=== PATIENT | male | born 1945 | race Caucasian/White ===

== ENCOUNTER 2018-01-13 08:23 | Observation (INO) ==
[2018-01-13] MEDS ORDERED: Isovue-370 500 ML INFUS..BTL IV ONE ×2 (08:33→10:45)
[2018-01-13] MEDS ORDERED: Ondansetron 4 MG/2 ML VIAL IVP ONE (08:35)
[2018-01-13] MEDS ORDERED: Ketorolac 15 MG/ML VIAL IVP ONE (08:35)
[2018-01-13] MEDS ORDERED: 0.9 % Sodium Chloride 500 ML IVC ONE (08:35)
--- NOTE | 2018-01-13 08:39 | Emergency Department Note ---
Disposition Clinical Impression: Acute appendicitis with rupture Disposition: Admitted As Inpatient Condition: Fair Abdominal Pain HPI - General Chief Complaint: ED Abdominal Pain Stated Complaint: abd pain Time Seen by Provider: 01/13/18 08:27 Source: patient Mode of arrival: ambulatory Limitations: no limitations Nursing Notes Reviewed: Yes Vital Signs Reviewed: Yes - History of Present Illness HPI Narrative: 72 year old male presents with abdominal pain. Pt stated he had cramping pain with nausea and diarrhea for three days in the past weekend. The pain moved to right lower quatrain and got worse since last night. Associate with mild nausea. no vomiting. Diarrhea resolved. Normal bowel movement this morning. He felt chills and hot. No past surgeries in abdomen. No history of diverticulosis. Pt Subjective Complaint: abdominal pain Onset (ago): day(s) Consistency: constant Location: RLQ Pain Scale: 7 - Related Data Home Medications Medication Instructions Recorded Confirmed Ascorbic Acid [Vitamin C] 1,000 mg PO DAILY 01/13/18 01/13/18 Aspirin [Adult Aspirin] 81 mg PO DAILY 01/13/18 01/13/18 Cholecalciferol (D-3) [Vitamin D] 2,000 unit PO DAILY 01/13/18 01/13/18 Finasteride [Proscar] 5 mg PO DAILY 01/13/18 01/13/18 Multivit-Min/FA/Lycopen/Lutein 1 tab PO DAILY 01/13/18 01/13/18 [Centrum Silver Men Tablet] Tamsulosin [Flomax] 0.4 mg PO DAILY 01/13/18 01/13/18 Allergies Allergy/AdvReac Type Severity Reaction Status Date / Time No Known Allergies Allergy Verified 01/13/18 08:27 Constitutional: Denies: fever Eyes: Denies: eye pain ENT ED: Denies: ear pain Cardiovascular: Denies: chest pain Respiratory: Denies: cough Gastrointestinal: Reports: abdominal pain, nausea Genitourinary: Denies: urgency Musculoskeletal: Denies: back pain Integumentary: Denies: rash Neurological: Denies: headache Psychiatric: Denies: anxiety Endocrine: Denies: fatigue Hematological/Lymphatic: Denies: easy bleeding Allergic/Immunologic: Denies: facial swelling Physical Exam - General Limitations: no limitations General appearance: alert - Head Head exam: atraumatic - Eye Eye exam: Present: normal appearance. Absent: scleral icterus, conjunctival injection - ENT ENT exam: normal exam - Neck Neck exam: Present: normal inspection - Chest Chest inspection: Present: normal inspection - Respiratory Respiratory exam: Present: normal lung sounds bilaterally. Absent: respiratory distress, wheezes - Cardiovascular Cardiovascular exam: Present: regular rate, normal rhythm - Abdominal Exam Abdominal exam: Present: soft, tenderness, rebound Abdominal tenderness: Present: RLQ - Extremities Exam Extremities exam: Present: normal inspection, full ROM. Absent: tenderness, pedal edema - Back Exam Back exam: Present: normal inspection, full ROM. Absent: tenderness - Neurological Exam Neurological exam: Present: alert, oriented X3 - Psychiatric Psychiatric exam: Present: normal affect, normal mood. Absent: depressed - Skin Skin exam: Present: warm, intact Course Vital Signs Temperature 98.6 F 01/13/18 08:25 Pulse Rate 100 01/13/18 08:25 Respiratory Rate 16 01/13/18 08:25 Blood Pressure 144/84 01/13/18 08:25 O2 Sat by Pulse Oximetry 96 01/13/18 08:25 Temperature 98.6 F 01/13/18 08:32 Pulse Rate 85 01/13/18 12:29 Respiratory Rate 19 01/13/18 12:29 Blood Pressure 146/85 01/13/18 12:29 O2 Sat by Pulse Oximetry 94 01/13/18 12:29 Oxygen Delivery Oxygen Delivery Room Air Abdominal Pain - [facility] Narrative Medical decision making narrative: 72 year old male presents with acute abdominal pain for 3 days, the pain located in RLQ since last night, associate with nausea. Physical exam: RLQ tender to rebound tenderness. Labs: white cell 12 slightly elevated, CRP elevated, abdomen CT indicated ruptured appenicities with 4.5 cm abscess. Surgeon contacted, pt will be admitted to surgical service. IV fluids and antibiotics started in ER. Dr. Hopkins saw the patient and agrees the above plan. Abdomen/Pelvis CT 01/13/18 08:33 IMPRESSION: Ruptured appendicitis. Associated 4.5 cm rim enhancing fluid collection suspicious for associated abscess. D/ / Matti Olivier MD / Matti Olivier MD Interpreting Provider: Matti Olivier MD Chest CT 01/13/18 10:45 IMPRESSION: 1. Again noted is a grossly dilated esophagus throughout its course in the chest consistent with achalasia. 2. Otherwise, stable chest CT. No acute abnormalities are identified. D/ / Desean Aguillon MD / Desean Aguillon MD Interpreting Provider: Desean Aguillon MD 1128 hrs.: Patient has ruptured appendicitis on CT. Were not start him on antibiotics. We spoke with Dr. Faith, she is in agreement with the admission. Patient's in agreement with admission. Patient's feeling better at this time. And a buttocks are started and waiting on bed placement. - Lab Data Lab results reviewed: Yes I reviewed the patient's lab results. Result diagrams: 01/13/18 09:12 01/13/18 09:12 Lab Results 01/13/18 01/13/18 01/13/18 Range/Units 09:11 09:12 09:12 WBC 12.7 H (4.3-11.1) K/mcL RBC 4.41 (4.19-5.50) M/mcL Hgb 14.5 (12.9-16.9) g/dL Hct 43.3 (37.5-50.1) % MCV 98.2 (83.0-100.0) fL MCH 32.9 (28.0-33.3) pg MCHC 33.5 (31.6-35.5) g/dL RDW 13.8 (11.5-14.5) % Plt Count 238 (140-400) K/mcL MPV 9.8 (9.4-12.4) fL Immature Gran % 1.1 (0-4) % Seg Neutrophils % 84.2 % Lymphocytes % 7.4 % Monocytes % 6.9 % Eosinophils % 0.2 % Basophils % 0.2 % Neutrophils # 10.7 H (1.6-8.9) K/mcL Lymphocytes # 0.9 (0.6-4.6) K/mcL Monocytes # 0.9 (0.0-1.3) K/mcL Eosinophils # 0.0 (0.0-0.6) K/mcL Basophils # 0.0 (0.0-0.2) K/mcL Sodium 136 (136-145) mEq/L Potassium 3.9 (3.5-5.1) mEq/L Chloride 101 (98-107) mEq/L Carbon Dioxide 27 (23-29) mEq/L BUN 21 (8-23) mg/dL Creatinine 0.97 (0.70-1.30) mg/dL Est GFR ( Amer) > 60 (> 60) Est GFR (Non-Af Amer) > 60 (> 60) BUN/Creatinine Ratio 22 (6-26) Glucose 114 H (70-105) mg/dL Calculated Osmolality 286 (280-300) Calcium 8.6 (8.6-10.3) mg/dL Total Bilirubin 0.9 (0.3-1.0) mg/dL AST 13 (13-39) Units/L ALT 14 (7-52) Units/L Alkaline Phosphatase 63 (34-104) Units/L C-Reactive Protein 123 H (Less than 10) mg/L Serum Total Protein 6.5 (6.4-8.9) g/dL Albumin 3.5 (3.5-5.7) g/dL Globulin 3.0 (2.4-3.5) g/dL Albumin/Globulin Ratio 1.2 (1.1-2.2) Lipase 6 L (11-82) Units/L Urine Color Yellow (Yellow) Urine Clarity Cloudy A (Clear) Urine pH 6.5 (5.0-8.0) pH Units Ur Specific [place] 1.021 (1.010-1.025) Urine Protein 30 H (Neg-Trace) mg/dL Urine Glucose (UA) Normal (Normal) mg/dL Urine Ketones 40 H (Negative) mg/dL Urine Blood Negative (Negative) Urine Nitrite Negative (Negative) Urine Bilirubin Small H (Negative) Urine Urobilinogen Normal (Normal) mg/dL Ur Leukocyte Esterase Moderate H (Negative) Urine Microscopic RBC 5-15 H (0-3) per hpf Urine Microscopic WBC 15-30 H (0-3) per hpf Ur Squamous Epith Cells Many H (None-Few) per lpf Urine Bacteria None Seen (None-Few) per hpf Hyaline Casts Moderate H (None-Few) per lpf Ur Culture Indicated? NO. A (NO) - Radiology Data Radiology results reviewed: Yes I reviewed the patient's radiology results. Attestation Statement - Attestation Attestation: This documentation is done with the assistance of Dragon dictation. Despite efforts made to ensure accuracy, there may be inaccuracies in cask maker or spelling and typographical errors. I have personally performed a face to face evaluation on this patient. I have reviewed and agree with the care plan. History and Exam by me shows: Patient seen and evaluated by myself and mid-sumeet Ho, I agree with her evaluation and management plan I supervised the care of the patient's stay. Patient diarrhea over the weekend which resolved he had some nausea now resolved. This morning he started having sharp right lower quadrant abdominal pains been going on since about midnight. He appears comfortable. He has had no difficult urination, he does have BPH. Patient able to urinate here. Nonsurgical abdomen. And a check labs CT of his abdomen and reassess. He is in agreement with plan.
[2018-01-13 09:36] LABS: Basophils % 0.2 %; Eosinophils % 0.2 %; Hematocrit 43.3 % (37.5-50.1); Hemoglobin 14.5 g/dL (12.9-16.9); Immature Granulocytes % 1.1 % (0-4); Lymphocytes # 0.9 K/mcL (0.6-4.6); Lymphocytes % 7.4 %; Mean Corpuscular HGB Conc 33.5 g/dL (31.6-35.5); Mean Corpuscular Hemoglobin 32.9 pg (28.0-33.3); Mean Corpuscular Volume 98.2 fL (83.0-100.0); Mean Platelet Volume 9.8 fL (9.4-12.4); Monocytes # 0.9 K/mcL (0.0-1.3); Monocytes % 6.9 %; Neutrophils # 10.7 K/mcL (1.6-8.9); Platelet Count 238 K/mcL (140-400); Red Blood Count 4.41 M/mcL (4.19-5.50); Red Cell Distribution Width 13.8 % (11.5-14.5); Segmented Neutrophils % 84.2 %
[2018-01-13 09:51] LABS: Alanine Aminotransferase 14 Units/L (7-52); Albumin 3.5 g/dL (3.5-5.7); Albumin/Globulin Ratio 1.2 (1.1-2.2); Alkaline Phosphatase 63 Units/L (34-104); Aspartate Amino Transferase 13 Units/L (13-39); BUN/Creatinine Ratio 22 (6-26); Bilirubin,Total 0.9 mg/dL (0.3-1.0); Blood Urea Nitrogen 21 mg/dL (8-23); C-Reactive Protein 123 mg/L (Less than 10); Calcium 8.6 mg/dL (8.6-10.3); Carbon Dioxide 27 mEq/L (23-29); Chloride 101 mEq/L (98-107); Glucose 114 mg/dL (70-105); Lipase 6 Units/L (11-82); Osmolality,Calculated 286 (280-300); Potassium 3.9 mEq/L (3.5-5.1); Sodium 136 mEq/L (136-145); Total Protein 6.5 g/dL (6.4-8.9); eGFR For Non-African Americans > 60 (> 60)
[2018-01-13 10:41] LABS: Bilirubin,Urine Small (Negative); Blood,Urine Negative (Negative); Clarity,Urine Cloudy (Clear); Color,Urine Yellow (Yellow); Glucose,Urine (UA) Normal (Normal); Ketones,Urine 40 mg/dL (Negative); Leukocyte Esterase,Urine Moderate (Negative); Nitrite,Urine Negative (Negative); PH,Urine 6.5 pH Units (5.0-8.0); Protein,Urine 30 mg/dL (Neg-Trace); Specific Gravity,Urine 1.021 (1.010-1.025); Urobilinogen,Urine Normal (Normal)
[2018-01-13 10:44] LABS: Bacteria,Urine None Seen per hpf (None-Few); Hyaline Casts,Urine Moderate per lpf (None-Few); Squamous Epithelial Cell,Urine Many per lpf (None-Few); WBC,Urine 15-30 per hpf (0-3)
[2018-01-13] MEDS ORDERED: MetroNIDAZOLE 500 MG/100 ML 500 MG/100 ML BAG IVPB ONE (11:19)
[2018-01-13] MEDS ORDERED: Naloxone 0.4 MG/ML INJ IVP PRN (11:56)
[2018-01-13] MEDS ORDERED: *HR* Metoprolol 5 MG/5 ML VIAL IVP PRN (11:56)
[2018-01-13] MEDS ORDERED: Ondansetron 4 MG/2 ML VIAL IVP PRN (11:56)
[2018-01-13] MEDS ORDERED: Morphine Oral CONC 5 MG/0.25 ML ORAL.SYG PO PRN (11:58)
[2018-01-13] MEDS: 0.9 % Sodium Chloride 1,000 ML IVC SCH (12:00)
[2018-01-13] MEDS ORDERED: 0.9 % Sodium Chloride 1,000 ML ONE (12:13)
--- NOTE | 2018-01-13 12:27 | General Surg History&Physical ---
<Carlita Martinez - Last Filed: 01/13/18 12:22> Date of Encounter: 01/13/18 Time of Encounter: 12:22 Assessment and Plan (1) Acute appendicitis with rupture Current Visit: Yes Status: Acute The assessment and plan as outlined above was discussed with the patient and/or family members who expressed understanding and agreement. All questions were answered. Imaging and history is consistent with acute appendicitis with rupture. Interventional radiology has been consult did for placement of drain given a 4.5 cm focal fluid collection with rim enhancement. Patient and his are agreeable. Plan: NPO while awaiting interventional radiology IV fluids continue IV antibiotics incentive spirometry ambulate as tolerated repeat a.m. labs serial abdominal exams continue to closely monitor (2) Achalasia Current Visit: Yes Status: Acute Followed by Adele. Patient states he would like to continue treatment therapy. Will continue to monitor (3) BPH (benign prostatic hyperplasia) Current Visit: Yes Status: Acute The assessment and plan as outlined above was discussed with the patient and/or family members who expressed understanding and agreement. All questions were answered. continue home medications NPO except meds Qualifiers: Lower urinary tract symptom presence: symptoms present Lower urinary tract symptom detail: unspecified Qualified Code(s): N40.1 - Benign prostatic hyperplasia with lower urinary tract symptoms History of Present Illness Chief complaint: RLQ pain HPI: Past medical, social, surgical, and family history were reviewed per the EMR and updated as indicated. His (manju ) is present and provides some of his me dical history. Mr. Lawrence is a 72 year old male who presented on 01/14/2108 for a 4 days history of abdominal discomfort and low-grade fever. Patient reports on Saturday he started having cramping, diffuse, mild abdominal discomfort and associated low- grade temperature of 99.9, nausea followed by vomiting on Saturday. He felt constipated so he took some milk of magnesium as well as Maalox had a bowel movement and then progressed to diarrhea. He reports his bowel movement yesterday was "normal for him." He states the discomfort has migrated to the right lower quadrant and is dull and achy, 7 out of 10. Activity such as walking or bending makes the discomfort worse, resting or being still slightly improves discomfort. He denies urinary signs or symptoms (despite his history of BPH), black, bloody, or tarry stool. He denies headache, dizziness, lightheadedness, chest pain, shortness of breath. He reports a history of difficulty swallowing due to achalasia. He had Botox treatment a few years ago at [facility]. He has not followed with anyone sent. Past Med Surg Social Fam HX - Past Medical History Source: patient Medical history: other (BPH) Additional medical history: Achalasia s/p botox treatment Psychiatric history: no psych history - Past Surgical History Surgical History: no surgical history - Social History Smoking Status: Former smoker Smokeless Tobacco Status: No Alcohol use: occasionally Drug use: none Occupational status: retired Current living situation: Home - Independent Activity Level: Independent ambulation Recent Out of Country Travel Within the Last 8 Weeks: No Exposure or Possible Exposure to Illness During Travel: No - Family History Mother Adopted: No Living Status: Hx Family Cardiac Disorders: No Hx Family Respiratory Disorders: No Hx Family Cancer: No Hx Family GI Disorders: No Hx Family Genitourinary Disorders: No Hx Family Endocrine Disorder: Yes Hx Family Musculoskeletal Disorders: No Medications and Allergies Ascorbic Acid [Vitamin C] 1,000 mg PO DAILY 01/13/18 [History] Aspirin [Adult Aspirin] 81 mg PO DAILY 01/13/18 [History] Cholecalciferol (D-3) [Vitamin D] 2,000 unit PO DAILY 01/13/18 [History] Finasteride [Proscar] 5 mg PO DAILY 01/13/18 [History] Multivit-Min/FA/Lycopen/Lutein [Centrum Silver Men Tablet] 1 tab PO DAILY 01/13/18 [History] Tamsulosin [Flomax] 0.4 mg PO DAILY 01/13/18 [History] Allergy/AdvReac Type Severity Reaction Status Date / Time No Known Allergies Allergy Verified 01/13/18 08:27 Review of Systems All systems PM: reviewed and no additional remarkable complaints except as stated All systems PM: The remainder of the systems were reviewed and are negative General Surgery Exam Initial Vital Signs Temp Pulse Resp BP Pulse Ox 98.6 F 100 16 144/84 96 01/13/18 08:25 01/13/18 08:25 01/13/18 08:25 01/13/18 08:25 01/13/18 08:25 Vital Signs Temp Pulse Resp BP Pulse Ox 01/13/18 12:29 85 19 146/85 94 01/13/18 08:32 98.6 F 100 16 144/84 96 01/13/18 08:25 98.6 F 100 16 144/84 96 Intake and Output 01/12/18 01/13/18 01/13/18 23:59 07:59 15:59 Intake Total 500 / 500 Balance 500 / 500 Intake: IV Fluids 500 / 500 0.9 % Sodium Chloride 500 ML @ 500 / 500 999 mls/hr IVC .Q31M ONE Rx#: [id number] Other: Stool Color Brown Weight 82.554 kg Patient Weight 01/13/18 23:59 Weight 82.554 kg VITAL SIGNS: Reviewed. See [facility] GENERAL: In no apparent distress. HEENT: Normocephalic, atraumatic, pupils are equal and reactive, extraocular motions intact, oropharynx is pink and moist, there is no neck adenopathy or JVD noted. CHEST/RESPIRATORY: The thorax is free from signs of trauma. Lung sounds: clear to auscultation, normal respiratory effort CARDIAC: Regular rate and rhythm. Normal S1 and S2, without murmurs, gallops, or rubs. VASCULAR: No Edema. 2+ peripheral pulses. ABDOMEN: soft, active bowel sounds, involuntary guarding, positive McBurney point, positive Merckle's sign MUSCULOSKELETAL: Good range of motion of all major joints. Extremities without clubbing, cyanosis or edema. NEUROLOGIC EXAM: Alert and oriented x 3. Speech normal. Follows commands. PSYCHIATRIC: Mood normal. SKIN: No rash or lesions. Results - Labs 01/13/18 09:12 01/13/18 09:12 Abnormal lab results WBC 12.7 K/mcL (4.3-11.1) H 01/13/18 09:12 Neutrophils # 10.7 K/mcL (1.6-8.9) H 01/13/18 09:12 Glucose 114 mg/dL (70-105) H 01/13/18 09:12 C-Reactive Protein 123 mg/L (Less than 10) H 01/13/18 09:12 Lipase 6 Units/L (11-82) L 01/13/18 09:12 Urine Clarity Cloudy (Clear) A 01/13/18 09:11 Urine Protein 30 mg/dL (Neg-Trace) H 01/13/18 09:11 Urine Ketones 40 mg/dL (Negative) H 01/13/18 09:11 Urine Bilirubin Small (Negative) H 01/13/18 09:11 Ur Leukocyte Esterase Moderate (Negative) H 01/13/18 09:11 Urine Microscopic RBC 5-15 per hpf (0-3) H 01/13/18 09:11 Urine Microscopic WBC 15-30 per hpf (0-3) H 01/13/18 09:11 Ur Squamous Epith Cells Many per lpf (None-Few) H 01/13/18 09:11 Hyaline Casts Moderate per lpf (None-Few) H 01/13/18 09:11 Ur Culture Indicated? NO. (NO) A 01/13/18 09:11 Diabetes panel 01/13/18 Range/Units 09:12 Sodium 136 (136-145) mEq/L Potassium 3.9 (3.5-5.1) mEq/L Chloride 101 (98-107) mEq/L Carbon Dioxide 27 (23-29) mEq/L BUN 21 (8-23) mg/dL Creatinine 0.97 (0.70-1.30) mg/dL Glucose 114 H (70-105) mg/dL Calcium 8.6 (8.6-10.3) mg/dL AST 13 (13-39) Units/L ALT 14 (7-52) Units/L Alkaline Phosphatase 63 (34-104) Units/L Albumin 3.5 (3.5-5.7) g/dL Calcium panel 01/13/18 Range/Units 09:12 Calcium 8.6 (8.6-10.3) mg/dL Albumin 3.5 (3.5-5.7) g/dL Pituitary panel 01/13/18 Range/Units 09:12 Sodium 136 (136-145) mEq/L Potassium 3.9 (3.5-5.1) mEq/L Chloride 101 (98-107) mEq/L Carbon Dioxide 27 (23-29) mEq/L BUN 21 (8-23) mg/dL Creatinine 0.97 (0.70-1.30) mg/dL Glucose 114 H (70-105) mg/dL Calcium 8.6 (8.6-10.3) mg/dL Adrenal panel 01/13/18 Range/Units 09:12 Sodium 136 (136-145) mEq/L Potassium 3.9 (3.5-5.1) mEq/L Chloride 101 (98-107) mEq/L Carbon Dioxide 27 (23-29) mEq/L BUN 21 (8-23) mg/dL Creatinine 0.97 (0.70-1.30) mg/dL Glucose 114 H (70-105) mg/dL Calcium 8.6 (8.6-10.3) mg/dL Total Bilirubin 0.9 (0.3-1.0) mg/dL AST 13 (13-39) Units/L ALT 14 (7-52) Units/L Alkaline Phosphatase 63 (34-104) Units/L Albumin 3.5 (3.5-5.7) g/dL All other labs normal. - Imaging CT scan - abdomen: report reviewed, image reviewed CT scan - chest: report reviewed CT scan - pelvis: report reviewed, image reviewed <Janae Faith - Last Filed: 01/14/18 17:06> Date of Encounter: 01/14/18 Assessment and Plan (1) Acute appendicitis with rupture Current Visit: Yes Status: Acute The assessment and plan as outlined above was discussed with the patient and/or family members who expressed understanding and agreement. All questions were answered.; discussed wiht patient CT results, labs and physical exam IR has already placed drain with purulent drainage resulting continue drain, cultures pending on zosyn ok clears prn pain control gi/dvt prophylaxis serial abdominal exams will try to resolve with conservative therapy, if able to will plan colonscopy in about 5 weeks, will plan appendectomy then in 6-8 weeks (2) Achalasia Current Visit: Yes Status: Acute The assessment and plan as outlined above was discussed with the patient and/or family members who expressed understanding and agreement. All questions were answered. discussed with patient [place] (3) BPH (benign prostatic hyperplasia) Current Visit: Yes Status: Chronic The assessment and plan as outlined above was discussed with the patient and/or family members who expressed understanding and agreement. All questions were answered. continue home medications Qualifiers: Lower urinary tract symptom presence: symptoms present Lower urinary tract symptom detail: unspecified Qualified Code(s): N40.1 - Benign prostatic hyperplasia with lower urinary tract symptoms History of Present Illness HPI: Mr. Lawrence is a 72 year old male with generalized mild abdominal discomfort for 4 days. Pain became worse the morning of presentation. He had no dysuria. He complains of diarrhea for a few days, no melena or hematochezia. Patient is due for colonoscopy next year. Low grade temps at home. Patient has longstanding achalasia and hasnt seen the physician who did botox at [facility] for several years. He had nausea and emesis associated with the pain. Past Med Surg Social Fam HX - Past Medical History Source: patient Additional medical history: achalasia, BPH - Past Surgical History Surgical History: other (egd/botox injection, colonscopy) Review of Systems All systems PM: reviewed and no additional remarkable complaints except as stated All systems PM: The remainder of the systems were reviewed and are negative General Surgery Exam Initial Vital Signs Temp Pulse Resp BP Pulse Ox 98.6 F 100 16 144/84 96 01/13/18 08:25 01/13/18 08:25 01/13/18 08:25 01/13/18 08:25 01/13/18 08:25 - General physical appearance well developed, well nourished, no distress - Eyes PERRL, normal ocular movement - ENT normal mucosa, normocephalic - Neck trachea midline - Respiratory normal expansion, clear to auscultation - Cardiovascular Cardiovascular exam: Present: RRR - Abdomen Abdomen general surgery: Present: bowel sounds present, soft, tender. Absent: distended, guarding, rebound Abdominal Tenderness: Present: RLQ - Integumentary Integumentary general surgery: Present: warm and dry, no abnormal pigmentation - Neurologic Present: CN 2-12 grossly intact - Musculoskeletal Present: normal posture - Psychiatric Psychiatric general surgery: Present: A&Ox3, speech is normal Results - Labs 01/14/18 05:39 01/14/18 05:39 Abnormal lab results RBC 3.89 M/mcL (4.19-5.50) L 01/14/18 05:39 Hgb 12.7 g/dL (12.9-16.9) L D 01/14/18 05:39 PT 12.9 Seconds (9.4-12.1) H 01/13/18 14:23 Chloride 108 mEq/L (98-107) H 01/14/18 05:39 Calcium 8.3 mg/dL (8.6-10.3) L 01/14/18 05:39 C-Reactive Protein 123 mg/L (Less than 10) H 01/13/18 09:12 Lipase 6 Units/L (11-82) L 01/13/18 09:12 Urine Clarity Cloudy (Clear) A 01/13/18 09:11 Urine Protein 30 mg/dL (Neg-Trace) H 01/13/18 09:11 Urine Ketones 40 mg/dL (Negative) H 01/13/18 09:11 Urine Bilirubin Small (Negative) H 01/13/18 09:11 Ur Leukocyte Esterase Moderate (Negative) H 01/13/18 09:11 Urine Microscopic RBC 5-15 per hpf (0-3) H 01/13/18 09:11 Urine Microscopic WBC 15-30 per hpf (0-3) H 01/13/18 09:11 Ur Squamous Epith Cells Many per lpf (None-Few) H 01/13/18 09:11 Hyaline Casts Moderate per lpf (None-Few) H 01/13/18 09:11 Ur Culture Indicated? NO. (NO) A 01/13/18 09:11 Diabetes panel 01/14/18 Range/Units 05:39 Sodium 140 (136-145) mEq/L Potassium 3.9 (3.5-5.1) mEq/L Chloride 108 H (98-107) mEq/L Carbon Dioxide 24 (23-29) mEq/L BUN 18 (8-23) mg/dL Creatinine 0.86 (0.70-1.30) mg/dL Glucose 101 (70-105) mg/dL Calcium 8.3 L (8.6-10.3) mg/dL Calcium panel 01/14/18 Range/Units 05:39 Calcium 8.3 L (8.6-10.3) mg/dL Phosphorus 3.0 (2.7-4.5) mg/dL Pituitary panel 01/14/18 Range/Units 05:39 Sodium 140 (136-145) mEq/L Potassium 3.9 (3.5-5.1) mEq/L Chloride 108 H (98-107) mEq/L Carbon Dioxide 24 (23-29) mEq/L BUN 18 (8-23) mg/dL Creatinine 0.86 (0.70-1.30) mg/dL Glucose 101 (70-105) mg/dL Calcium 8.3 L (8.6-10.3) mg/dL Adrenal panel 01/14/18 Range/Units 05:39 Sodium 140 (136-145) mEq/L Potassium 3.9 (3.5-5.1) mEq/L Chloride 108 H (98-107) mEq/L Carbon Dioxide 24 (23-29) mEq/L BUN 18 (8-23) mg/dL Creatinine 0.86 (0.70-1.30) mg/dL Glucose 101 (70-105) mg/dL Calcium 8.3 L (8.6-10.3) mg/dL All other labs normal. - Imaging CT scan - abdomen: report reviewed, image reviewed CT scan - pelvis: report reviewed, image reviewed - Attending Attestation I have personally performed a face to face evaluation on this patient. I have re viewed and agree with the care plan. History and Exam by me shows:
[2018-01-13 14:51] LABS: INR 1.1; Prothrombin Time 12.9 Seconds (9.4-12.1)
[2018-01-13] MEDS ORDERED: 0.9 % Sodium Chloride 500 ML ONE (15:20)
[2018-01-13] MEDS ORDERED: *HR* Midazolam HCl 2 MG/2 ML VIAL IVP ONE (15:24)
[2018-01-13] MEDS ORDERED: *HR* FentaNYL (PF) 100 MCG/2 ML VIAL IVP ONE (15:24)
--- NOTE | 2018-01-13 16:03 | IR Procedure Note ---
Date of procedure: 01/13/18 Consent Obtained: Written consent Timeout: Correct patient and procedure verified, Correct site verified, Time out performed, Skin prep completed Local anesthetic: Lidocaine 1% Indications: Right abdominal abscess, ruptured appendix Procedure Performed: Drain placement Was there an statistical assistant present: No Site/Technique: Right abdomen, 12 fr drain placed. Results/Findings: 14ml of pus out, sample sent to lab. Estimated blood loss (cc): 1 Complications: None; Tolerated procedure well Post Procedure Treatment Plan: Monitoring in pts room Specimen: to lab
[2018-01-13] MEDS: Acetaminophen IV 1,000 MG/100 ML INFUS..BTL IVPB SCH ×3 (18:43→23:45)
[2018-01-13] MEDS: Piperacillin/Tazobactam 3.375 GM in 0.9 % Sodium Chloride Mini Bag 100 ML IVPB SCH ×2 (18:43→23:45)
[2018-01-14] MEDS: 0.9 % Sodium Chloride 1,000 ML IVC SCH ×2 (04:05→18:24)
[2018-01-14] MEDS: Acetaminophen IV 1,000 MG/100 ML INFUS..BTL IVPB SCH ×3 (05:50→18:25)
[2018-01-14] MEDS: *HR* Heparin 5,000 UNIT/ML VIAL SQ SCH ×2 (05:51→18:24)
[2018-01-14 06:23] LABS: Basophils % 0.5 %; Eosinophils # 0.1 K/mcL (0.0-0.6); Eosinophils % 1.6 %; Hematocrit 38.5 % (37.5-50.1); Immature Granulocytes % 1.3 % (0-4); Lymphocytes % 15.2 %; Mean Corpuscular Hemoglobin 32.6 pg (28.0-33.3); Mean Platelet Volume 9.6 fL (9.4-12.4); Monocytes # 0.7 K/mcL (0.0-1.3); Monocytes % 10.8 %; Neutrophils # 4.5 K/mcL (1.6-8.9); Platelet Count 210 K/mcL (140-400); Red Blood Count 3.89 M/mcL (4.19-5.50); Segmented Neutrophils % 70.6 %
[2018-01-14 06:24] LABS: Hemoglobin 12.7 g/dL (12.9-16.9)
[2018-01-14 06:45] LABS: BUN/Creatinine Ratio 21 (6-26); Blood Urea Nitrogen 18 mg/dL (8-23); Calcium 8.3 mg/dL (8.6-10.3); Carbon Dioxide 24 mEq/L (23-29); Chloride 108 mEq/L (98-107); Glucose 101 mg/dL (70-105); Magnesium 2.1 mg/dL (1.6-2.6); Osmolality,Calculated 292 (280-300); Potassium 3.9 mEq/L (3.5-5.1); Sodium 140 mEq/L (136-145); eGFR For Non-African Americans > 60 (> 60)
[2018-01-14] MEDS: Finasteride 5 MG TABLET PO SCH (08:07)
[2018-01-14] MEDS: Pantoprazole 40 MG VIAL IVP SCH (08:07)
[2018-01-14] MEDS: Piperacillin/Tazobactam 3.375 GM in 0.9 % Sodium Chloride Mini Bag 100 ML IVPB SCH ×2 (08:07→16:43)
--- NOTE | 2018-01-14 16:41 | General Surgery Progress Note ---
<Carlita Martinez - Last Filed: 01/14/18 16:33> Date of Encounter: 01/14/18 Time of Encounter: 16:33 - Assessment and Plan (1) Acute appendicitis with rupture Current Visit: Yes Status: Acute s/p 12f drain placed in IR. 14 ml of pus returned. Gram positive rods observed. path pending. patient states improvement in symptoms. RLQ GOLD drain noted to have crack in tubing. Difficulty maintaining suction. Attempted call to IR, but they were gone. New consult for IR placed to have tubing/catheter replaced tomorrow. WBC normalized. Plan: Continue IV ATBX for another 24 hours Continue supportive care and discomfort management NPO after midnight for IR drain replacement in am soft diet GI and DVT prophylaxis amb TID OOB to chair TID IS Repeat am labs Serial abd exams Will need repeat CT in one week (2) Achalasia Current Visit: Yes Status: Acute Will refer patient for treatment at [facility] given that his previous provider is not available Continue to monitor No difficulty noted (3) BPH (benign prostatic hyperplasia) Current Visit: Yes Status: Acute Denies issues urinating. No output recorded per EMR Qualifiers: Lower urinary tract symptom presence: symptoms present Lower urinary tract symptom detail: unspecified Qualified Code(s): N40.1 - Benign prostatic hyperplasia with lower urinary tract symptoms Subjective Patient reports: no new complaints, feels better, still having pain, pain is less, tolerating liquids well, voiding w/o difficulty (no urine output recortded. pt states no difficulty), afebrile Objective Vital Signs - Last 8 Hours Temp Pulse Resp BP Pulse Ox 01/14/18 14:59 97.7 F 73 14 148/74 96 01/14/18 10:37 98.0 F 66 16 121/76 93 Intake and Output 01/14/18 01/14/18 01/14/18 07:59 15:59 23:59 Intake Total 1300 / 1300 100 / 100 Output Total 0 / 0 8 / 8 Balance 1300 / 1300 92 / 92 Intake: IV Fluids 1300 / 1300 100 / 100 0.9 % Sodium Chloride 1,000 ML 1000 / 1000 @ 75 mls/hr IVC .[id number] [facility] Rx #:[id number] Ofirmev 1,000 mg/100 ml 1,000 200 / 200 mg In 100 ml @ 400 mls/hr IVPB Q6HR [facility] Rx#:[id number] Zosyn 3.375 GM In 0.9 % Sodium 100 / 100 100 / 100 Chloride (Mini-Bag +) 100 ML @ 25 mls/hr IVPB Q8HR [facility] Rx#: [id number] Output: Wound Drainage 0 / 0 8 / 8 Right Lower Abdomen 0 / 0 8 / 8 Other: # Voids 1 1 Weight 84.5 kg Patient Weight 01/14/18 23:59 Weight 84.5 kg - General physical appearance well nourished, no distress - Eyes normal ocular movement - ENT normal nares, normal mucosa - Neck Neck exam: trachea midline - Respiratory normal expansion, normal respiratory effort, clear to auscultation - Cardiovascular Cardiovascular exam: Present: RRR - Abdomen Abdomen: Present: bowel sounds present, soft, tender, wound (RLQ GOLD drain noted to have crack in tubing. Difficulty maintaining suction) Hernia: none - Integumentary no rash - Neurologic normal coordination, normal sensation - Musculoskeletal normal posture - Psychiatric oriented to time, oriented to person, oriented to place, speech is normal, memory intact - Labs 01/14/18 05:39 01/14/18 05:39 Diabetes panel 01/14/18 Range/Units 05:39 Sodium 140 (136-145) mEq/L Potassium 3.9 (3.5-5.1) mEq/L Chloride 108 H (98-107) mEq/L Carbon Dioxide 24 (23-29) mEq/L BUN 18 (8-23) mg/dL Creatinine 0.86 (0.70-1.30) mg/dL Glucose 101 (70-105) mg/dL Calcium 8.3 L (8.6-10.3) mg/dL Calcium panel 01/14/18 Range/Units 05:39 Calcium 8.3 L (8.6-10.3) mg/dL Phosphorus 3.0 (2.7-4.5) mg/dL Pituitary panel 01/14/18 Range/Units 05:39 Sodium 140 (136-145) mEq/L Potassium 3.9 (3.5-5.1) mEq/L Chloride 108 H (98-107) mEq/L Carbon Dioxide 24 (23-29) mEq/L BUN 18 (8-23) mg/dL Creatinine 0.86 (0.70-1.30) mg/dL Glucose 101 (70-105) mg/dL Calcium 8.3 L (8.6-10.3) mg/dL Adrenal panel 01/14/18 Range/Units 05:39 Sodium 140 (136-145) mEq/L Potassium 3.9 (3.5-5.1) mEq/L Chloride 108 H (98-107) mEq/L Carbon Dioxide 24 (23-29) mEq/L BUN 18 (8-23) mg/dL Creatinine 0.86 (0.70-1.30) mg/dL Glucose 101 (70-105) mg/dL Calcium 8.3 L (8.6-10.3) mg/dL Consult Discharge Plan - Plan Instructions: Appendicitis (DC) Referrals: Sunil Robbins MD [Primary Care Provider] - Janae Faith MD [Partnered Physician] - 01/29/18 1:15 pm Carlita Martinez CNP [Advanced Practice Nurse] - 01/24/18 10:00 am <Janae Faith - Last Filed: 01/14/18 17:08> Date of Encounter: 01/14/18 - Assessment and Plan (1) Acute appendicitis with rupture Current Visit: Yes Status: Acute continue abx ok soft diet prn pain control will ask IR to replace drain (2) Achalasia Current Visit: Yes Status: Acute (3) BPH (benign prostatic hyperplasia) Current Visit: Yes Status: Chronic urinating without issue continue home medication Qualifiers: Lower urinary tract symptom presence: symptoms present Lower urinary tract symptom detail: unspecified Qualified Code(s): N40.1 - Benign prostatic hyperplasia with lower urinary tract symptoms Subjective Patient reports: feels better, still having pain, pain is less, tolerating liquids well, flatus, no bowel movement, afebrile Objective Vital Signs - Last 8 Hours Temp Pulse Resp BP Pulse Ox 01/14/18 14:59 97.7 F 73 14 148/74 96 01/14/18 10:37 98.0 F 66 16 121/76 93 Intake and Output 01/14/18 01/14/18 01/14/18 07:59 15:59 23:59 Intake Total 1300 / 1300 200 / 200 Output Total 0 / 0 8 / 8 Balance 1300 / 1300 192 / 192 Intake: IV Fluids 1300 / 1300 200 / 200 0.9 % Sodium Chloride 1,000 ML 1000 / 1000 @ 75 mls/hr IVC .[id number] [facility] Rx #:[id number] Ofirmev 1,000 mg/100 ml 1,000 200 / 200 100 / 100 mg In 100 ml @ 400 mls/hr IVPB Q6HR [facility] Rx#:[id number] Zosyn 3.375 GM In 0.9 % Sodium 100 / 100 100 / 100 Chloride (Mini-Bag +) 100 ML @ 25 mls/hr IVPB Q8HR [facility] Rx#: [id number] Output: Wound Drainage 0 / 0 8 / 8 Right Lower Abdomen 0 / 0 8 / 8 Other: # Voids 1 1 Weight 84.5 kg Patient Weight 01/14/18 23:59 Weight 84.5 kg - General physical appearance well nourished, no distress - Eyes normal ocular movement - ENT normal mucosa, normocephalic - Neck Neck exam: trachea midline - Respiratory normal expansion, normal respiratory effort - Cardiovascular Cardiovascular exam: Present: RRR - Abdomen Abdomen: Present: bowel sounds present, soft, tender (less so than yesterday), wound. Absent: distended, guarding, rebound Abdominal Tenderness: RLQ - Integumentary no rash - Neurologic normal coordination - Musculoskeletal normal posture - Psychiatric oriented to time, oriented to person, oriented to place, memory intact - Labs 01/14/18 05:39 01/14/18 05:39 Diabetes panel 01/14/18 Range/Units 05:39 Sodium 140 (136-145) mEq/L Potassium 3.9 (3.5-5.1) mEq/L Chloride 108 H (98-107) mEq/L Carbon Dioxide 24 (23-29) mEq/L BUN 18 (8-23) mg/dL Creatinine 0.86 (0.70-1.30) mg/dL Glucose 101 (70-105) mg/dL Calcium 8.3 L (8.6-10.3) mg/dL Calcium panel 01/14/18 Range/Units 05:39 Calcium 8.3 L (8.6-10.3) mg/dL Phosphorus 3.0 (2.7-4.5) mg/dL Pituitary panel 01/14/18 Range/Units 05:39 Sodium 140 (136-145) mEq/L Potassium 3.9 (3.5-5.1) mEq/L Chloride 108 H (98-107) mEq/L Carbon Dioxide 24 (23-29) mEq/L BUN 18 (8-23) mg/dL Creatinine 0.86 (0.70-1.30) mg/dL Glucose 101 (70-105) mg/dL Calcium 8.3 L (8.6-10.3) mg/dL Adrenal panel 01/14/18 Range/Units 05:39 Sodium 140 (136-145) mEq/L Potassium 3.9 (3.5-5.1) mEq/L Chloride 108 H (98-107) mEq/L Carbon Dioxide 24 (23-29) mEq/L BUN 18 (8-23) mg/dL Creatinine 0.86 (0.70-1.30) mg/dL Glucose 101 (70-105) mg/dL Calcium 8.3 L (8.6-10.3) mg/dL - Attending Attestation I have personally performed a face to face evaluation on this patient. I have reviewed and agree with the care plan. History and Exam by me shows:
[2018-01-15] MEDS: Acetaminophen IV 1,000 MG/100 ML INFUS..BTL IVPB SCH ×5 (00:31→23:48)
[2018-01-15] MEDS: Piperacillin/Tazobactam 3.375 GM in 0.9 % Sodium Chloride Mini Bag 100 ML IVPB SCH ×4 (00:39→23:52)
[2018-01-15 04:31] LABS: Basophils % 0.4 %; Eosinophils # 0.1 K/mcL (0.0-0.6); Eosinophils % 2.1 %; Hemoglobin 12.5 g/dL (12.9-16.9); Immature Granulocytes % 0.9 % (0-4); Lymphocytes # 1.3 K/mcL (0.6-4.6); Lymphocytes % 19.6 %; Mean Corpuscular HGB Conc 33.8 g/dL (31.6-35.5); Mean Corpuscular Hemoglobin 32.9 pg (28.0-33.3); Mean Corpuscular Volume 97.4 fL (83.0-100.0); Mean Platelet Volume 9.4 fL (9.4-12.4); Monocytes # 0.6 K/mcL (0.0-1.3); Monocytes % 8.8 %; Neutrophils # 4.7 K/mcL (1.6-8.9); Platelet Count 210 K/mcL (140-400); Red Cell Distribution Width 13.3 % (11.5-14.5); Segmented Neutrophils % 68.2 %
[2018-01-15 04:52] LABS: BUN/Creatinine Ratio 12 (6-26); Blood Urea Nitrogen 11 mg/dL (8-23); Calcium 8.4 mg/dL (8.6-10.3); Carbon Dioxide 26 mEq/L (23-29); Chloride 107 mEq/L (98-107); Glucose 99 mg/dL (70-105); Osmolality,Calculated 289 (280-300); Potassium 3.7 mEq/L (3.5-5.1); Sodium 140 mEq/L (136-145); eGFR For Non-African Americans > 60 (> 60)
[2018-01-15] MEDS: *HR* Heparin 5,000 UNIT/ML VIAL SQ SCH ×2 (06:02→17:42)
[2018-01-15] MEDS: 0.9 % Sodium Chloride 1,000 ML IVC SCH ×2 (09:47→21:31)
[2018-01-15] MEDS: Finasteride 5 MG TABLET PO SCH (09:49)
[2018-01-15] MEDS: Pantoprazole 40 MG VIAL IVP SCH (09:49)
[2018-01-15] MEDS ORDERED: Isovue-300 50 ML VIAL IVP ONE (14:24)
--- NOTE | 2018-01-15 15:21 | IR Procedure Note ---
Date of procedure: 01/15/18 Consent Obtained: Verbal consent, Written consent Timeout: Correct patient and procedure verified, Correct site verified, Time out performed, Skin prep completed Local anesthetic: Lidocaine 1% Indications: damaged drainage catheter Procedure Performed: drain check and change Was there an bilingual legal assistant present: No Site/Technique: right abdomen Results/Findings: persistent collection Estimated blood loss (cc): 0 Complications: None; Tolerated procedure well Post Procedure Treatment Plan: drain to bulb Specimen: NA
--- NOTE | 2018-01-15 17:17 | General Surgery Progress Note ---
<TacosAlberto S - Last Filed: 01/15/18 18:08> Date of Encounter: 01/15/18 Time of Encounter: 10:45 - Assessment and Plan (1) Acute appendicitis with rupture Status: Acute Patient to have drain replaced by IR today due to a small crack in the tubing Drain 16 > 5 ml today WBC 6.8 On Zosyn On soft diet Zofran for nausea Protonix for GI prophylaxis Acetaminophen and morphine for pain Ambulate TID Will plan for repeat CT in one week (2) BPH (benign prostatic hyperplasia) Status: Chronic Patient denies difficulty urinating Continue home meds Qualifiers: Lower urinary tract symptom presence: symptoms present Lower urinary tract symptom detail: unspecified Qualified Code(s): N40.1 - Benign prostatic hyperplasia with lower urinary tract symptoms Subjective Patient reports: no new complaints, feels better, pain is less, flatus, bowel movement Narrative: Patient doing well this morning. He is waiting to have drain replaced by IR. He denies abdominal pain, nausea, vomiting, chest pain, SOB, fevers/chills. Patient states he had some diarrhea earlier this morning. Objective Vital Signs - Last 8 Hours Temp Pulse Resp BP Pulse Ox 01/15/18 14:48 97.4 F L 81 14 169/78 98 01/15/18 11:38 97.9 F 73 18 167/72 97 Intake and Output 01/15/18 01/15/18 01/15/18 07:59 15:59 23:59 Intake Total 420 / 420 100 / 100 Output Total 5 / 5 200 / 200 Balance 415 / 415 -100 / -100 Intake: IV Fluids 300 / 300 100 / 100 Ofirmev 1,000 mg/100 ml 1,000 200 / 200 mg In 100 ml @ 400 mls/hr IVPB Q6HR [facility] Rx#:[id number] Zosyn 3.375 GM In 0.9 % Sodium 100 / 100 100 / 100 Chloride (Mini-Bag +) 100 ML @ 25 mls/hr IVPB Q8HR [facility] Rx#: [id number] Oral 120 / 120 Output: Urine 0 / 0 200 / 200 Wound Drainage 5 / 5 0 / 0 Right Lower Abdomen 5 / 5 0 / 0 Other: Meal NPO # Voids 1 # Bowel Movements 0 Weight 85.2 kg Blood Glucose* 95 76 Patient Weight 01/15/18 23:59 Weight 85.2 kg - General physical appearance well developed, well nourished - Respiratory normal expansion, normal respiratory effort - Cardiovascular Cardiovascular exam: Present: RRR - Abdomen Abdomen: Present: bowel sounds present, soft, non tender Additional Comments: GOLD drain with 5 ml light yellow liquid in bulb - Incision Incision: Present: clean and dry, intact - Integumentary no rash - Musculoskeletal normal gait, normal posture - Psychiatric oriented to time, oriented to person, oriented to place - Labs 01/15/18 04:10 01/15/18 04:10 Diabetes panel 01/15/18 Range/Units 04:10 Sodium 140 (136-145) mEq/L Potassium 3.7 (3.5-5.1) mEq/L Chloride 107 (98-107) mEq/L Carbon Dioxide 26 (23-29) mEq/L BUN 11 (8-23) mg/dL Creatinine 0.90 (0.70-1.30) mg/dL Glucose 99 (70-105) mg/dL Calcium 8.4 L (8.6-10.3) mg/dL Calcium panel 01/15/18 Range/Units 04:10 Calcium 8.4 L (8.6-10.3) mg/dL Pituitary panel 01/15/18 Range/Units 04:10 Sodium 140 (136-145) mEq/L Potassium 3.7 (3.5-5.1) mEq/L Chloride 107 (98-107) mEq/L Carbon Dioxide 26 (23-29) mEq/L BUN 11 (8-23) mg/dL Creatinine 0.90 (0.70-1.30) mg/dL Glucose 99 (70-105) mg/dL Calcium 8.4 L (8.6-10.3) mg/dL Adrenal panel 01/15/18 Range/Units 04:10 Sodium 140 (136-145) mEq/L Potassium 3.7 (3.5-5.1) mEq/L Chloride 107 (98-107) mEq/L Carbon Dioxide 26 (23-29) mEq/L BUN 11 (8-23) mg/dL Creatinine 0.90 (0.70-1.30) mg/dL Glucose 99 (70-105) mg/dL Calcium 8.4 L (8.6-10.3) mg/dL - VTE Documentation of Mechanical Device: Graduated compression elastic hosiery Consult Discharge Plan - Plan Instructions: Appendicitis (DC), [place] Drain Care (DC) Additional Instructions: General Surgical Discharge Instructions 1. See GOLD drain care below. 2. You may shower beginning today, but no tub baths, soaking, or swimming for 2 weeks. 3. You may resume driving when you are off narcotics and are safe to react in a car. 4. Take ibuprofen every 8 hours for discomfort. If this does not relieve disco mfort, you may take the as needed Percocet. Take narcotics as directed. Do not take more narcotics then directed and do not share your narcotics with any other person. Do not drink alcohol while on narcotics. 5. Take stool softeners (Colace) or a water based laxative (Miralax) while taking narcotics. You may hold for loose stools. 6. Report any fevers greater than 100.5F, increase abdominal discomfort, drainage that looks like pus, increased redness or pain at the surgical site, or any vomiting. 7. Report any pain in the calves, shortness of breath, or rapid heartbeat. 8. Follow-up in the office as directed. 9. Do not drink alcohol while taking metronidazole. Drinking alcohol can result in violent abdominal pain and vomiting. Daily GOLD Drain Care: 1. Remove dressings. Shower with antibacterial soap. 2. Do not let the GOLD drain dangle from your body. Use the safety pin to secure to your clothing. Secure the GOLD to a lanyard or other type of long necklace when you shower. 3. Replace drain gauze and taped to secure. 4. Record the output from your GOLD bulb (at least once daily) on the form provided and bring this with you to your follow-up appointment. 5. Keep the GOLD drain to suction (squeeze the bulb and replace the cap while squeezing). 6. Strip the lines twice daily (hold onto the line as close to the body as you can, then with the other hand push the contents of the line into the GOLD bulb). Referrals: Janae Faith MD [Partnered Physician] - 01/29/18 1:50 pm Sunil Robbins MD [Primary Care Provider] - Carlita Martinez CNP [Advanced Practice Nurse] - 01/24/18 10:00 am Prescriptions: Ondansetron ODT [Zofran ODT] 4 mg SL Q4HR PRN #15 tab.rapdis PRN Reason: Postsurgical nausea RX: OxyCODONE/APAP 5/325 [Percocet 5/325 MG] 1 each PO Q6HR PRN 7 Days #28 tablet PRN Reason: Pain Adhesive Tape [Paper Tape] 1 pkg TP AD #1 tape Ciprofloxacin [Cipro] 500 mg PO BID 14 Days #28 tablet Docusate Sodium [Colace] 100 mg PO BID PRN #30 capsule PRN Reason: Constipation RX: Ibuprofen 800 mg PO Q8H PRN #42 tablet PRN Reason: Mild Pain RX: metroNIDAZOLE [Flagyl] 500 mg PO TID 14 Days #42 tablet Polyhexam Biguan/Gauze Bandage [Curity Amd 4"X4" Non-Woven] 2 each TP AD #60 sponge <Janae Faith - Last Filed: 01/17/18 11:52> Date of Encounter: 01/15/18 - Assessment and Plan (1) Acute appendicitis with rupture Status: Acute pigtail drain with crack in drain allowing no suction to be maintained, IR to replace today ok reg diet after IR drain replacement continue abx prn pain control pt ambulating well no abdominal pain currently (2) BPH (benign prostatic hyperplasia) Status: Chronic Qualifiers: Lower urinary tract symptom presence: symptoms present Lower urinary tract symptom detail: unspecified Qualified Code(s): N40.1 - Benign prostatic hyperplasia with lower urinary tract symptoms Subjective Patient reports: feels better, tolerating a regular diet, flatus, bowel movement Objective - General physical appearance well nourished, no distress, no pain - Eyes PERRL, normal ocular movement - ENT normal mucosa, normocephalic - Respiratory normal expansion, normal respiratory effort - Cardiovascular Cardiovascular exam: Present: RRR - Abdomen Abdomen: Present: bowel sounds present, soft, non tender. Absent: distended, guarding, rebound - Integumentary no rash - Neurologic CN 2-12 grossly intact, normal coordination - Musculoskeletal normal posture - Psychiatric oriented to time, oriented to person, oriented to place, speech is normal, memory intact - Labs 01/15/18 04:10 01/15/18 04:10 - Attending Attestation I examined this patient and my medical decision-making was reviewed with the Resident Physician. I agree with the documented findings, disposition and treatment plan as described except to the extent set forth below.
[2018-01-15] MEDS ORDERED: *HR* Morphine Soln 10 MG/5 ML UDC PO PRN (18:00)
[2018-01-16] MEDS: Acetaminophen IV 1,000 MG/100 ML INFUS..BTL IVPB SCH (05:12)
[2018-01-16] MEDS: *HR* Heparin 5,000 UNIT/ML VIAL SQ SCH (05:30)
[2018-01-16 06:30] VITALS: BP 154/76
[2018-01-16] MEDS: Finasteride 5 MG TABLET PO SCH (08:32)
[2018-01-16] MEDS: Pantoprazole 40 MG VIAL IVP SCH (08:32)
[2018-01-16] MEDS: Piperacillin/Tazobactam 3.375 GM in 0.9 % Sodium Chloride Mini Bag 100 ML IVPB SCH (08:32)
--- NOTE | 2018-01-16 08:51 | Discharge Summary ---
Orders not resulted at time of discharge: Pending orders 01/13/18 15:48 Culture,Anaerobic [RM] Stat Culture,Body Fluid [RM] Stat Fungal Culture [MYC] Stat Date of Encounter: 01/16/18 Time of Encounter: 08:59 - Discharge Diagnosis (1) Acute appendicitis with rupture Priority: Primary Status: Acute (2) Achalasia Priority: Secondary Status: Acute (3) BPH (benign prostatic hyperplasia) Priority: Secondary Status: Chronic Qualifiers: Lower urinary tract symptom presence: symptoms present Lower urinary tract symptom detail: unspecified Qualified Code(s): N40.1 - Benign prostatic hyperplasia with lower urinary tract symptoms General Surgery Exam Initial Vital Signs Temp Pulse Resp BP Pulse Ox 98.6 F 100 16 144/84 96 01/13/18 08:25 01/13/18 08:25 01/13/18 08:25 01/13/18 08:25 01/13/18 08:25 - General physical appearance no distress, other (up in room) - Eyes normal ocular movement - Respiratory normal expansion, normal respiratory effort, clear to auscultation - Cardiovascular Cardiovascular exam: Present: RRR - Abdomen Abdomen general surgery: Present: bowel sounds present, soft, tender, wound (GOLD noted, maintaining suction) Abdominal Tenderness: Present: RLQ Hernia: Present: none - Integumentary Integumentary general surgery: Present: warm and dry, no abnormal pigmentation - Neurologic Present: CN 2-12 grossly intact, normal coordination, normal sensation - Psychiatric Psychiatric general surgery: Present: A&Ox3, appropriate, oriented to person, oriented to place, oriented to time, speech is normal, memory intact - Hospital Course Hospital course: Mr. Lawrence is a 72 year old male who presented on 01/13/2018 with a three-day history of right lower quadrant pain. He was noted to have acute appendicitis with rupture and a fluid collection. The drain was placed per interventional radiology and cultures obtained. Unfortunately the initial drain was noted to have a defect in at in the drain had to be replaced on 01/15/2018. The remainder of his hospital course has been unremarkable. He's been supported on IV antibiotics, is tolerating a diet without nausea or vomiting, vital signs are stable, and he is afebrile. His microbiology is growing 2 Gram negative rods. We will begin discharge planning to home with a follow-up in the office in one week. He will be discharged on the appropriate antibiotics and supportive/comfort measures. - Time Spent with Patient Total time spent providing and/or coordinating discharge services: - Discharge Medications Prescriptions: Ondansetron ODT [Zofran ODT] 4 mg SL Q4HR PRN #15 tab.rapdis PRN Reason: Postsurgical nausea OxyCODONE/APAP 5/325 [Percocet 5/325 MG] 1 each PO Q6HR PRN 7 Days #28 tablet PRN Reason: Pain Adhesive Tape [Paper Tape] 1 pk TP AD #1 tape Ciprofloxacin [Cipro] 500 mg PO BID 14 Days #28 tablet Docusate Sodium [Colace] 100 mg PO BID PRN #30 capsule PRN Reason: Constipation Ibuprofen 800 mg PO Q8H PRN #42 tablet PRN Reason: Mild Pain metroNIDAZOLE [Flagyl] 500 mg PO TID 14 Days #42 tablet Polyhexam Biguan/Gauze Bandage [Curity Amd 4"X4" Non-Woven] 2 each TP AD #60 sponge Home Medications: Ascorbic Acid [Vitamin C] 1,000 mg PO DAILY 01/13/18 [History] Aspirin [Adult Aspirin] 81 mg PO DAILY 01/13/18 [History] Cholecalciferol (D-3) [Vitamin D] 2,000 unit PO DAILY 01/13/18 [History] Finasteride [Proscar] 5 mg PO DAILY 01/13/18 [History] Multivit-Min/FA/Lycopen/Lutein [Centrum Silver Men Tablet] 1 tab PO DAILY 01/13/18 [History] Tamsulosin [Flomax] 0.4 mg PO DAILY 01/13/18 [History] Adhesive Tape [Paper Tape] 1 [facility] TP AD #1 tape 01/16/18 [Rx] Ciprofloxacin [Cipro] 500 mg PO BID 14 Days #28 tablet 01/16/18 [Rx] Docusate Sodium [Colace] 100 mg PO BID PRN #30 capsule 01/16/18 [Rx] Ibuprofen 800 mg PO Q8H PRN #42 tablet 01/16/18 [Rx] Ondansetron ODT [Zofran ODT] 4 mg SL Q4HR PRN #15 tab.rapdis 01/16/18 [Rx] OxyCODONE/APAP 5/325 [Percocet 5/325 MG] 1 each PO Q6HR PRN 7 Days #28 tablet 01/16/18 [Rx] Polyhexam Biguan/Gauze Bandage [Curity Amd 4"X4" Non-Woven] 2 each TP AD #60 sponge 01/16/18 [Rx] metroNIDAZOLE [Flagyl] 500 mg PO TID 14 Days #42 tablet 01/16/18 [Rx] Allergies/Adverse Reactions: Allergy/AdvReac Type Severity Reaction Status Date / Time No Known Allergies Allergy Verified 01/13/18 08:27 Date of admission: 01/13/18 11:50 Primary care physician: Sunil Robbins MD Consults: 01/13/18 11:57 Consult to Interventional Radiology [CONS] Stat Consulting Provider: Radiology Interventional Cols Reason for Consult: Perforated appendicitis; place drain if possible; reviewed with PEPITO Roach Time Notified: 11:58 Call Completed: Yes 01/14/18 16:04 Consult to Interventional Radiology [CONS] Stat Consulting Provider: Radiology Interventional Cols Reason for Consult: replace drain d/t crack in tubing. Will not hold suction; attempted call. ok to complete on 01/15/2018 Time Notified: 16:05 Call Completed: Yes Discharging clinician: Carlita Martinez Anticipated date of discharge: 01/16/18 Labs on day of discharge: Labs from last 24 hours 01/15/18 01/15/18 01/15/18 17:30 11:41 07:21 POC Glucose 73 76 95 Preliminary micro results at discharge 01/13/18 15:48 Body Fluid Culture - Preliminary Other-Specify in Comments Gram Negative Nnamdi Gram Negative Nnamdi#2 - Impressions ITS Impressions Retroperitoneal Abscess Drainage 01/13/18 00:00 IMPRESSION: Successful CT guided placement of right abdominal abscess drainage catheter status post perforated appendicitis. D/ / Sunil Birch MD / Sunil Birch MD Interpreting Provider: Sunil Birch MD Abdomen/Pelvis CT 01/13/18 08:33 IMPRESSION: Ruptured appendicitis. Associated 4.5 cm rim enhancing fluid collection suspicious for associated abscess. D/ / Matti Olivier MD / Matti Olivier MD Interpreting Provider: Matti Olivier MD Chest CT 01/13/18 10:45 IMPRESSION: 1. Again noted is a grossly dilated esophagus throughout its course in the chest consistent with achalasia. 2. Otherwise, stable chest CT. No acute abnormalities are identified. D/ / Desean Aguillon MD / Desean Aguillon MD Interpreting Provider: Desean Aguillon MD Drainage Catheter Insertion 01/15/18 00:00 IMPRESSION: Successful fluoroscopy guided right lower abdominal drainage catheter exchange. New 12 [place] catheter was placed and attached to suction bulb. D/ / Yosi Nevarez / Yosi Nevarez Interpreting Provider: Yosi Nevarez - Patient Status Disposition: Home, Self-Care Condition: Fair Overall status at discharge: patient is progressing back to baseline - Ambulatory Orders Ambulatory Orders: CT abd pelvis w iv and oral [CT] Time Frame: 01/23/18, Facility: [facility], Location: Radiology - Discharge Instructions Instructions: Appendicitis (DC), [place] Drain Care (DC) Follow Up With: Janae Faith MD [Partnered Physician] - 01/29/18 1:15 pm Sunil Robbins MD [Primary Care Provider] - Carlita Martinez CNP [Advanced Practice Nurse] - 01/24/18 10:00 am Additional Instructions: General Surgical Discharge Instructions 1. See GOLD drain care below. 2. You may shower beginning today, but no tub baths, soaking, or swimming for 2 weeks. 3. You may resume driving when you are off narcotics and are safe to react in a car. 4. Take ibuprofen every 8 hours for discomfort. If this does not relieve discomfort, you may take the as needed Percocet. Take narcotics as directed. Do not take more narcotics then directed and do not share your narcotics with any other person. Do not drink alcohol while on narcotics. 5. Take stool softeners (Colace) or a water based laxative (Miralax) while taking narcotics. You may hold for loose stools. 6. Report any fevers greater than 100.5F, increase abdominal discomfort, drainage that looks like pus, increased redness or pain at the surgical site, or any vomiting. 7. Report any pain in the calves, shortness of breath, or rapid heartbeat. 8. Follow-up in the office as directed. 9. Do not drink alcohol while taking metronidazole. Drinking alcohol can result in violent abdominal pain and vomiting. Daily GOLD Drain Care: 1. Remove dressings. Shower with antibacterial soap. 2. Do not let the GOLD drain dangle from your body. Use the safety pin to secure to your clothing. Secure the GOLD to a lanyard or other type of long necklace when you shower. 3. Replace drain gauze and taped to secure. 4. Record the output from your GOLD bulb (at least once daily) on the form provided and bring this with you to your follow-up appointment. 5. Keep the GOLD drain to suction (squeeze the bulb and replace the cap while squeezing). 6. Strip the lines twice daily (hold onto the line as close to the body as you can, then with the other hand push the contents of the line into the GOLD bulb). - Diet and Activity Activity: increase activity as tolerated Diet: advance to your usual diet
== END 2018-01-16 11:35 | disposition home or self-care (01) ==
LOC: EMEROOARM 08:23 → INTOOBSV 11:50 → 2ANU 11:50 → 3ANU 13:10
PROVIDERS: ADMIT Surgery; ATTEND Surgery
PROC: IRDRAIN (2018-01-13 13:00)